=== PATIENT | male | born 2000 | race Caucasian/White ===

== ENCOUNTER 2018-09-04 20:51 | Emergency (ER) | payer MEDICAID ==
[2018-09-04] MEDS ORDERED: Lidocaine 2% 20 ML MDV INFILT ONE (20:52)
[2018-09-04] MEDS ORDERED: Clindamycin HCl 150 MG Cap PO ONE (21:12)
[2018-09-04 21:15] VITALS: BP 111/66
--- NOTE | 2018-09-04 21:20 | EDM.PDOC ---
ED HPI GENERAL MEDICAL PROBLEM - General Chief Complaint: ENT Problem Stated Complaint: SWOLLEN FACE Time Seen by Provider: 09/04/18 21:05 Source of Information: Reports: Patient History Limitations: Reports: No Limitations - History of Present Illness INITIAL COMMENTS - FREE TEXT/NARRATIVE: Flip comes into [facility] ED with a 3 day hx of L upper dental pain, and appearance of L hemifacial swelling over the past 24 hrs. There is no sinus congestion, sneezing, fever, chills, or sweats. He has not seen a DDS. He has tried Ibuprofen for sx relief. - Related Data Allergies Allergy/AdvReac Type Severity Reaction Status Date / Time No Known Allergies Allergy Verified 09/04/18 21:06 Home Meds: Home Meds Clindamycin HCl 300 mg PO TID #20 capsule 09/04/18 [Rx] ED ROS ENT - Review of Systems Review Of Systems: ROS reveals no pertinent complaints other than HPI. ED EXAM, ENT - Physical Exam Exam: See Below General Appearance: Alert, WD/WN, Mild Distress Eye Exam: Bilateral Eye: EOMI, Normal Inspection, PERRL Ears: Normal External Exam, Normal TMs Nose: Normal Inspection, Normal Mucousa, Clear Rhinorrhea Mouth/Throat: Normal Lips, Normal Oropharynx, Gum Swelling (#15 buccal swelling , tooth exquisitely tender) Head: Facial Swelling (L hemifacial swelling) Neck: Normal Inspection, Supple, Non-Tender, Full Range of Motion Respiratory/Chest: Lungs Clear, Normal Breath Sounds Cardiovascular: Regular Rate, Rhythm, No Murmur Back: Normal Inspection Extremities: Normal Inspection Neurological: Alert, Oriented, CN II-XII Intact, Normal Cognition, No Motor/ Sensory Deficits Psychiatric: Normal Affect, Normal Mood Skin: Warm, Dry, Intact Lymphatic: No Adenopathy ED ENT PROCEDURES - Additional/Other Procedure(s) Other (Free Text) Procedure(s): With patient consent, the gingival swelling at #15 was prepped, anesthestic with 2% Lidocaine 1 ml, and I&D with expression of copious exudate. There was minimal bleeding. Patient tolerated procedure well. Course - Vital Signs Text/Narrative:: Patient tolerated procedure well. - Orders/Labs/Meds Meds: Medications Discontinued Medications Generic Name Dose Route Start Last Admin Trade Name Freq PRN Reason Stop Dose Admin Clindamycin HCl 300 mg 09/04/18 21:12 Cleocin PO 09/04/18 21:13 ONETIME ONE Departure - Departure Time of Disposition: 21:20 Disposition: Home, Self-Care 01 Condition: Fair Clinical Impression: Dental abscess - Discharge Information *PRESCRIPTION DRUG MONITORING PROGRAM REVIEWED*: Not Applicable *COPY OF PRESCRIPTION DRUG MONITORING REPORT IN PATIENT MICHAEL: Not Applicable Prescriptions: Clindamycin HCl 300 mg PO TID #20 capsule - Problem List & Annotations (1) Dental abscess SNOMED Code(s): 495190585 Code(s): K04.7 - PERIAPICAL ABSCESS WITHOUT SINUS Status: Acute Annotation/Comment:: I dispensed Clindamycin 300 mg tid for a week, suggested rinses and NSAIDs for pain sxs. - Problem List Review Problem List Initiated/Reviewed/Updated: Yes - Assessment/Plan Plan: Follow up with DDS.
== END 2018-09-04 21:40 | disposition home or self-care (01) ==
LOC: FB.ED 20:51
DX: K04.7 Periapical abscess without sinus (principal)
CPT/HCPCS: 41800; 99282; A9270; J2001; 10060

== ENCOUNTER 2020-03-14 18:11 | Emergency (ER) | payer SELFPAY ==
[2020-03-14] MEDS ORDERED: Cephalexin 500 MG Cap PO STA (19:18)
[2020-03-14] MEDS ORDERED: diphenhydrAMINE 50 MG Cap PO ONE (19:18)
--- NOTE | 2020-03-14 19:22 | EDM.PDOC ---
ED HPI GENERAL MEDICAL PROBLEM - General Stated Complaint: BUMPS,LOOKS LIKE HIVES Time Seen by Provider: 03/14/20 19:00 Source of Information: Reports: Patient History Limitations: Reports: No Limitations - History of Present Illness INITIAL COMMENTS - FREE TEXT/NARRATIVE: Patient presented to the ED because of rash that is spreadi g on his arms and now in his legs and back. It's pruritis and some has pus at the middle. there is no associated fever or chills. - Related Data Allergies Allergy/AdvReac Type Severity Reaction Status Date / Time No Known Allergies Allergy Verified 03/14/20 20:38 Home Meds: Home Meds Clindamycin HCl 300 mg PO TID #20 capsule 09/04/18 [Rx] cephALEXin [Keflex] 500 mg PO Q8H #30 cap 03/14/20 [Rx] Social & Family History - Family History Family Medical History: Noncontributory - Caffeine Use Caffeine Use: Reports: Soda ED ROS GENERAL - Review of Systems Review Of Systems: See Below Constitutional: Reports: No Symptoms HEENT: Reports: No Symptoms Respiratory: Reports: No Symptoms Cardiovascular: Reports: No Symptoms Endocrine: Reports: No Symptoms GI/Abdominal: Reports: No Symptoms : Reports: No Symptoms Musculoskeletal: Reports: No Symptoms Skin: Reports: Rash Neurological: Reports: No Symptoms Psychiatric: Reports: No Symptoms ED EXAM, SKIN/RASH Exam: See Below Exam Limited By: No Limitations General Appearance: Alert, No Apparent Distress Eye Exam: Bilateral Eye: PERRL Ears: Normal External Exam, Normal Canal Nose: Normal Inspection, Normal Mucosa Throat/Mouth: Normal Inspection, Normal Lips, Normal Teeth Head: Atraumatic, Normocephalic Neck: Normal Inspection, Supple, Non-Tender, Full Range of Motion Respiratory/Chest: No Respiratory Distress, Lungs Clear, Normal Breath Sounds Cardiovascular: Normal Peripheral Pulses, Regular Rate, Rhythm, No Edema, No Gallop GI/Abdominal: Normal Bowel Sounds, Soft, Non-Tender, No Organomegaly Rectal (Males) Exam: Normal Exam, Normal Rectal Tone, Prostate Normal Back Exam: Normal Inspection, Full Range of Motion Extremities: Normal Inspection, Normal Range of Motion, Non-Tender Neurological: Alert, Oriented, CN II-XII Intact, Normal Cognition, Normal Gait, Normal Reflexes, No Motor/Sensory Deficits Psychiatric: Normal Affect, Normal Mood Skin: Warm, Other (urticaria, impetigo) Course - Vital Signs Text/Narrative:: keflex 500 mg po x1 Benadryl 50 mg po x1 Last Recorded V/S: Last Vital Signs Temp 36.2 C 03/14/20 18:11 Pulse 74 03/14/20 18:11 Resp 16 03/14/20 18:11 BP 122/69 03/14/20 18:11 Pulse Ox 100 03/14/20 18:11 - Orders/Labs/Meds Meds: Medications Discontinued Medications Generic Name Dose Route Start Last Admin Trade Name Kylee PRN Reason Stop Dose Admin Cephalexin 500 mg 03/14/20 19:18 03/14/20 19:30 Keflex PO 03/14/20 19:19 500 mg NOW STA Administration Diphenhydramine HCl 50 mg 03/14/20 19:18 03/14/20 19:30 Benadryl PO 03/14/20 19:19 50 mg ONETIME ONE Administration Departure - Departure Time of Disposition: 19:30 Disposition: Home, Self-Care 01 Condition: Good Clinical Impression: Impetigo - Discharge Information Prescriptions: cephALEXin [Keflex] 500 mg PO Q8H #30 cap Instructions: Impetigo, Adult Referrals: PCP,None [Primary Care Provider] - Additional Instructions: Please read discharge instructions on Impetigo Keep your skin moist Take benadryl 25mg-50 mg every 4-6 hours as needed for itching Keflex 500 mg 3 times daily for 10 days Dage3ax up if symptoms persist Sepsis Event Note (ED) - Focused Exam Vital Signs: Vital Signs Temp Pulse Resp BP Pulse Ox 03/14/20 18:11 36.2 C 74 16 122/69 100
[2020-03-14 20:47] VITALS: BP 122/69; PULSE 74
== END 2020-03-14 19:33 | disposition home or self-care (01) ==
LOC: FB.ED 18:11
DX: L01.00 Impetigo, unspecified (principal)
CPT/HCPCS: 99282; A9270

== ENCOUNTER 2020-04-02 20:20 | Emergency (ER) | payer SELFPAY ==
[2020-04-02] MEDS ORDERED: LORazepam 2 MG/ML SDV IVPUSH ONE (20:36)
--- NOTE | 2020-04-02 20:42 | EDM.PDOCBH ---
ED HPI GENERAL MEDICAL PROBLEM - General Chief Complaint: Drug or Alcohol Abuse Stated Complaint: HEAD INJURY Time Seen by Provider: 04/02/20 20:35 Source of Information: Reports: Patient, Family History Limitations: Reports: Intoxication - History of Present Illness INITIAL COMMENTS - FREE TEXT/NARRATIVE: Came in with friend has been drinking alcohol fell down sustained laceration to the left elbow area ( abrasion about 1 cmin length) right upper eyelid with laceration Onset: Today Duration: Getting Worse Improves with: Reports: None Worsens with: Reports: None Associated Symptoms: Reports: Confusion, Headaches, Weakness - Related Data Allergies Allergy/AdvReac Type Severity Reaction Status Date / Time poison shira Allergy Severe states Uncoded 04/03/20 03:32 severe reaction Home Meds: Home Meds NK [No Known Home Meds] 04/03/20 [History] Past Medical History - Past Health History Medical/Surgical History: Denies Medical/Surgical History Social & Family History - Family History Family Medical History: Noncontributory - Caffeine Use Caffeine Use: Reports: Soda ED ROS GENERAL - Review of Systems Review Of Systems: Comprehensive ROS is negative, except as noted in HPI. Constitutional: Reports: Fever, Chills, Malaise, Weakness ED EXAM, BEHAVIORAL HEALTH - Physical Exam Exam: See Below Exam Limited By: No Limitations General Appearance: Alert, WD/WN, No Apparent Distress Ears: Normal External Exam Nose: Normal Inspection Throat/Mouth: Normal Inspection Head: Other (Laceration over right eyebrow ( old)) Neck: Supple, Non-Tender Respiratory/Chest: Lungs Clear, Normal Breath Sounds Cardiovascular: Regular Rate, Rhythm GI/Abdominal: Soft, Non-Tender Back Exam: No: CVA Tenderness (R), CVA Tenderness (L), Decreased Range of Motion, Vertebral Tenderness Extremities: Normal Range of Motion, Arm Pain (abrasion on the forearm : superficial) Neurological: Alert, Normal Mood/Affect, CN II-XII Intact Psychiatric: Alert, Normal Affect, Oriented Skin Exam: Tattoo(s), Other COURSE, BEHAVIORAL HEALTH COMP - Course Vital Signs: Last Vital Signs Temp 36.5 C 04/02/20 20:45 Pulse 65 04/03/20 06:55 Resp 18 04/03/20 06:55 BP 108/46 L 04/03/20 06:55 Pulse Ox 100 04/03/20 06:55 Orders, Labs, Meds: Active Orders 24 hr Category Date Time Status Vaccines to be Administered [RC] PER UNIT ROUTINE Care 04/02/20 20:43 Active Head wo Cont [CT] Stat Exams 04/02/20 20:37 Taken Sodium Chloride 0.9% [Normal Saline] 1,000 ml Med 04/02/20 20:45 Active IV ASDIRECTED Sodium Chloride 0.9% [Normal Saline] 1,000 ml Med 04/02/20 20:45 Active IV ASDIRECTED Medication Orders Sodium Chloride (Normal Saline) 1,000 mls @ 999 mls/hr IV ASDIRECTED SUDHEER Last Admin: 04/02/20 21:20 Dose: 999 mls/hr Documented by: VIANNEY Sodium Chloride (Normal Saline) 1,000 mls @ 125 mls/hr IV ASDIRECTED SUDHEER Last Admin: 04/03/20 05:51 Dose: 125 mls/hr Documented by: Infusion: 04/03/20 05:51 Dose: 125 mls/hr Documented by: Admin: 04/02/20 22:25 Dose: 125 mls/hr Documented by: VIANNEY Laboratory Tests 04/02/20 04/02/20 04/02/20 Range/Units 20:40 20:40 20:40 WBC 8.4 (4.5-12.0) X10-3/uL RBC 5.79 H (4.30-5.75) x10(6)uL Hgb 17.4 (13.5-17.8) g/dL Hct 50.5 (30.0-51.3) % MCV 87.3 (80-96) fL MCH 30.0 (27.7-33.6) pg MCHC 34.4 (32.2-35.4) g/dL RDW 12.6 (11.5-15.5) % Plt Count 176 (125-369) X10(3)uL Sodium 143 (135-145) mmol/L Potassium 3.3 L (3.5-5.3) mmol/L Chloride 104 (100-110) mmol/L Carbon Dioxide 23 (21-32) mmol/L BUN 5 L (7-18) mg/dL Creatinine 0.8 (0.70-1.30) mg/dL Est Cr Clr Drug Dosing TNP Estimated GFR (MDRD) > 60 (>60) BUN/Creatinine Ratio 6.3 L (9-20) Glucose 111 (80-116) mg/dL Calcium 8.5 L (8.6-10.2) mg/dL Total Bilirubin 0.8 (0.1-1.3) mg/dL AST 40 H D (5-25) IU/L ALT 33 D (12-36) U/L Alkaline Phosphatase 121 H (56-112) IU/L Total Protein 7.9 (6.0-8.0) g/dL Albumin 4.1 (3.5-5.2) g/dL Globulin 3.8 g/dL Albumin/Globulin Ratio 1.1 Urine Opiates Screen (NEGATIVE) Ur Oxycodone Screen (NEGATIVE) Ur Propoxyphene Screen (NEGATIVE) Ur Barbituates Screen (NEGATIVE) Ur Tricyclics Screen (NEGATIVE) Ur Phencyclidine Scrn (NEGATIVE) Ur Amphetamine Screen (NEGATIVE) Urine MDMA Screen (NEGATIVE) U Benzodiazepines Scrn (NEGATIVE) U Cocaine Metab Screen (NEGATIVE) U Marijuana (THC) Screen (NEGATIVE) Ethyl Alcohol 0.37 H* (<0.03) % 04/02/20 Range/Units 20:55 WBC (4.5-12.0) X10-3/uL RBC (4.30-5.75) x10(6)uL Hgb (13.5-17.8) g/dL Hct (30.0-51.3) % MCV (80-96) fL MCH (27.7-33.6) pg MCHC (32.2-35.4) g/dL RDW (11.5-15.5) % Plt Count (125-369) X10(3)uL Sodium (135-145) mmol/L Potassium (3.5-5.3) mmol/L Chloride (100-110) mmol/L Carbon Dioxide (21-32) mmol/L BUN (7-18) mg/dL Creatinine (0.70-1.30) mg/dL Est Cr Clr Drug Dosing Estimated GFR (MDRD) (>60) BUN/Creatinine Ratio (9-20) Glucose (80-116) mg/dL Calcium (8.6-10.2) mg/dL Total Bilirubin (0.1-1.3) mg/dL AST (5-25) IU/L ALT (12-36) U/L Alkaline Phosphatase (56-112) IU/L Total Protein (6.0-8.0) g/dL Albumin (3.5-5.2) g/dL Globulin g/dL Albumin/Globulin Ratio Urine Opiates Screen Negative (NEGATIVE) Ur Oxycodone Screen Negative (NEGATIVE) Ur Propoxyphene Screen Negative (NEGATIVE) Ur Barbituates Screen Negative (NEGATIVE) Ur Tricyclics Screen Negative (NEGATIVE) Ur Phencyclidine Scrn Negative (NEGATIVE) Ur Amphetamine Screen Negative (NEGATIVE) Urine MDMA Screen Negative (NEGATIVE) U Benzodiazepines Scrn Negative (NEGATIVE) U Cocaine Metab Screen Negative (NEGATIVE) U Marijuana (THC) Screen Negative (NEGATIVE) Ethyl Alcohol (<0.03) % Medications Generic Name Dose Route Start Last Admin Trade Name Freq PRN Reason Stop Dose Admin Sodium Chloride 1,000 mls @ 999 mls/hr 04/02/20 20:45 04/02/20 21:20 Normal Saline IV 999 mls/hr ASDIRECTED SUDHEER Administration Sodium Chloride 1,000 mls @ 125 mls/hr 04/02/20 20:45 04/03/20 05:51 Normal Saline IV 125 mls/hr ASDIRECTED SUDHEER Administration Discontinued Medications Generic Name Dose Route Start Last Admin Trade Name Freq PRN Reason Stop Dose Admin Diphtheria/Tetanus/Acell Pertussis 0.5 ml 04/02/20 20:43 04/02/20 21:21 Boostrix IM 04/02/20 20:44 0.5 ml .ONCE ONE Administration Lorazepam 0.5 mg 04/02/20 20:36 04/02/20 21:05 Ativan IVPUSH 04/02/20 20:37 0.5 mg ONETIME ONE Administration Re-Assessment/Re-Exam: pt is currently sleeping , will continue to monitor for any change in his condition Re-Assessment/Re-Exam Date: 04/03/20 (pt slept throughout the night , went to urinate several times with unsteady gait , this am no longer unsteady) Departure - Departure Time of Disposition: 07:15 Disposition: Home, Self-Care 01 Condition: Fair Clinical Impression: Acute alcohol intoxication, Abrasion of skin of finger of right hand - Discharge Information Referrals: Faustina Connors [facility] [Primary Care Provider] - Forms: ED Department Discharge Sepsis Event Note (ED) - Focused Exam Vital Signs: Vital Signs Temp Pulse Resp BP Pulse Ox 04/03/20 06:55 65 18 108/46 L 100 04/03/20 04:00 95 18 110/77 96 04/02/20 20:45 36.5 C 114 H 20 150/110 H 96 - My Orders Last 24 Hours: My Active Orders 04/02/20 20:37 Head wo Cont [CT] Stat 04/02/20 20:43 Vaccines to be Administered [RC] PER UNIT ROUTINE 04/02/20 20:45 Sodium Chloride 0.9% [Normal Saline] 1,000 ml IV ASDIRECTED Sodium Chloride 0.9% [Normal Saline] 1,000 ml IV ASDIRECTED - Assessment/Plan Last 24 Hours: My Active Orders 04/02/20 20:37 Head wo Cont [CT] Stat 04/02/20 20:43 Vaccines to be Administered [RC] PER UNIT ROUTINE 04/02/20 20:45 Sodium Chloride 0.9% [Normal Saline] 1,000 ml IV ASDIRECTED Sodium Chloride 0.9% [Normal Saline] 1,000 ml IV ASDIRECTED
[2020-04-02] MEDS ORDERED: Diphtheria,Pertussis(Acell),Tetanus Vaccine 0.5 ML Syringe IM ONE (20:43)
[2020-04-02] MEDS ORDERED: Sodium Chloride 0.9% 1,000 ML IV SCH (20:45)
[2020-04-02] MEDS: Sodium Chloride 0.9% 1,000 ML IV SCH (22:25)
[2020-04-03] MEDS: Sodium Chloride 0.9% 1,000 ML IV SCH (05:51)
[2020-04-03 07:08] VITALS: BP 108/46; PULSE 65
== END 2020-04-03 07:50 | disposition home or self-care (01) ==
LOC: FB.ED 20:20
DX: S01.111A Laceration without foreign body of right eyelid and periocular area, initial encounter (principal); S50.811A Abrasion of right forearm, initial encounter; S60.419A Abrasion of unspecified finger, initial encounter; F10.129 Alcohol abuse with intoxication, unspecified; Y90.8 Blood alcohol level of 240 mg/100 ml or more; Z91.09 Other allergy status, other than to drugs and biological substances; Z23 Encounter for immunization; W17.89XA Other fall from one level to another, initial encounter
CPT/HCPCS: 36415; 70450; 80053; 80305-QW; 80307; 85027; 90471; 90715; 96374; 99284-25; J2060; J7030

== ENCOUNTER 2024-10-16 07:08 | Emergency (ER) | payer MEDICAID ==
[2024-10-16 07:51] LABS: BLOOD UREA NITROGEN,BUN 10 mg/dL (7-18); BUN/CREATININE RATIO 14.3 (9-20); CALCIUM 8.3 mg/dL (8.6-10.2); CARBON DIOXIDE,CO2 23 mmol/L (21-32); CHLORIDE,CL 98 mmol/L (100-110); CREATININE 0.7 mg/dL (0.70-1.30); ESTIMATED GFR 131 mL/min (>60); GLUCOSE RANDOM 114 mg/dL (80-116); POTASSIUM,K 3.3 mmol/L (3.5-5.3); SODIUM,NA 132 mmol/L (135-145)
[2024-10-16 07:54] LABS: BASOPHILS PERCENT AUTO 0.2 % (0.3-3.8); EOSINOPHILS ABSOLUTE AUTO 0.2 x10-3/uL (0.0-0.6); EOSINOPHILS PERCENT AUTO 2.5 % (0.1-6.8); HEMOGLOBIN 14.7 g/dL (12.9-17.7); LYMPHOCYTES ABSOLUTE AUTO 0.9 x10-3/uL (0.5-4.5); LYMPHOCYTES PERCENT AUTO 12.3 % (15.8-45.3); MEAN CORPUSCULAR HEMOGLOBIN 30.7 pg (27.0-33.3); MEAN CORPUSCULAR HGB CONC 35.9 g/dL (28.7-35.3); MEAN CORPUSCULAR VOLUME 85.5 fL (80.8-98.7); MEAN PLATELET VOLUME 8.8 fL (6.7-11.0); MONOCYTES ABSOLUTE AUTO 0.6 x10-3/uL (0.0-1.2); MONOCYTES PERCENT AUTO 8.4 % (5.5-15.2); NEUTROPHILS ABSOLUTE AUTO 5.7 x10-3/uL (1.7-6.9); NEUTROPHILS PERCENT AUTO 76.6 % (40.3-71.8); PLATELET COUNT,PLT 147 x10(3)uL (117-477); RED CELL DISTRIBUTION WIDTH 13.1 % (12.4-15.0); WHITE BLOOD CELL COUNT,WBC 7.4 x10-3/uL (3.2-10.1)
[2024-10-16 07:57] LABS: A/G RATIO 1.2; ALANINE AMINOTRANSFERASE,ALT 31 U/L (12-36); ALKALINE PHOSPHATASE 94 IU/L (56-112); ASPARTATE AMNIOTRANSFERASE,AST 27 IU/L (5-25); BILIRUBIN TOTAL 1.7 mg/dL (0.1-1.3); PROTEIN TOTAL,TP 7.4 g/dL (6.0-8.0)
[2024-10-16] MEDS: Sodium Chloride 0.9% 1,000 ML IV ONE (07:57)
[2024-10-16] MEDS: Alum Hydroxide/Mag Hydroxide 15 ML, Lidocaine 2% 15 ML PO ONE (07:57)
[2024-10-16] MEDS: Iopamidol 755 Mg/ML 100 ML Bottle IV SCH (08:05)
[2024-10-16 08:45] VITALS: BP 140/88; PULSE 90
== END 2024-10-16 08:45 | disposition home or self-care (01) ==
LOC: FB.ED 07:08
DX: K20.90 Esophagitis, unspecified without bleeding (principal); F17.210 Nicotine dependence, cigarettes, uncomplicated; Z79.899 Other long term (current) drug therapy
CPT/HCPCS: 74177; 80053; 83690; 85025; 96360; 99284-25; A9270-GY; J7030; Q9967